=== PATIENT | male | born 1945 | race Caucasian/White ===

== ENCOUNTER 2017-08-29 18:33 | Emergency (ER) | payer MEDICARE, OTHER ==
--- NOTE | 2017-08-29 19:08 | EDM.PDOC ---
ED HPI GENERAL MEDICAL PROBLEM - General Chief Complaint: Genitourinary Problem Stated Complaint: POSSIBLE KIDNEY STONE Time Seen by Provider: 08/29/17 18:56 Source of Information: Reports: Patient, Family () History Limitations: Reports: No Limitations - History of Present Illness INITIAL COMMENTS - FREE TEXT/NARRATIVE: The patient states that he developed lower left flank pain 44-36 hours ago. Initially it was mild, then became worse yesterday. It is a constant heavy burning sensation. It is not modifiable. He states that it is the same as prior kidney stones. The pain started to radiate to the lower left quadrant of his abdomen around 14:00 to 15:00 today. The patient also notes that he was constipated yesterday, took Ex-Lax, then had a good bowel movement, which improved his symptoms. The patient and his are on vacation, traveling by car from [place]. Left Flank Pain Score (Numeric/FACES): 9 - Related Data Allergies Allergy/AdvReac Type Severity Reaction Status Date / Time Penicillins Allergy Hives Verified 08/29/17 18:57 anti-inflammatories Allergy Hives Uncoded 08/29/17 18:57 Past Medical History HEENT History: Reports: Hard of Hearing, Impaired Vision Genitourinary History: Reports: Renal Calculus Musculoskeletal History: Reports: Fracture - Past Surgical History HEENT Surgical History: Reports: Tonsillectomy Male Surgical History: Reports: Lithotripsy ([facility]) Social & Family History - Family History Family Medical History: Noncontributory ED ROS GENERAL - Review of Systems Review Of Systems: ROS reveals no pertinent complaints other than HPI. ED EXAM, RENAL/ - Physical Exam Exam: See Below Exam Limited By: No Limitations General Appearance: Alert, WD/WN, No Apparent Distress Eye Exam: Bilateral Eye: Normal Inspection Ears: Normal External Exam, Hearing Grossly Normal Nose: Normal Inspection, No Blood Throat/Mouth: Normal Inspection, Normal Lips, Normal Voice, No Airway Compromise Head: Atraumatic, Normocephalic Neck: Normal Inspection, Full Range of Motion Respiratory/Chest: No Respiratory Distress, Lungs Clear, Normal Breath Sounds, No Accessory Muscle Use Cardiovascular: Normal Peripheral Pulses, Regular Rate, Rhythm, No Edema, No Gallop, No JVD, No Murmur, No Rub GI/Abdominal: Normal Bowel Sounds, Soft, Non-Tender (even to LLQ), No Organomegaly, No Distention, No Abnormal Bruit, No Mass (Male) Exam: Deferred Rectal (Males) Exam: Deferred Back Exam: Normal Inspection, Full Range of Motion, CVA Tenderness (L) (mild). No: CVA Tenderness (R) Extremities: Normal Inspection, Normal Range of Motion, No Pedal Edema, Normal Capillary Refill Neurological: Alert, Oriented, Normal Cognition, No Motor/Sensory Deficits Psychiatric: Normal Affect Skin Exam: Warm, Dry, Intact, Normal Color, No Rash Course - Vital Signs Last Recorded V/S: Last Vital Signs Temp 36.6 C 08/29/17 18:54 Pulse 90 08/29/17 18:54 Resp 24 H 08/29/17 18:54 BP 160/79 H 08/29/17 18:54 Pulse Ox 99 08/29/17 18:54 - Orders/Labs/Meds Orders: Active Orders 24 hr Category Date Time Status UA W/MICROSCOPIC [URIN] Stat Lab 08/29/17 18:45 Ordered Labs: Laboratory Tests 08/29/17 Range/Units 18:45 Urine Color Yellow (Yellow) Urine Appearance Clear (Clear) Urine pH 5.5 (5.0-8.0) Ur Specific [place] 1.020 (1.005-1.030) Urine Protein 1+ H (Negative) Urine Glucose (UA) 2+ H (Negative) Urine Ketones 2+ H (Negative) Urine Occult Blood 2+ H (Negative) Urine Nitrite Negative (Negative) Urine Bilirubin Negative (Negative) Urine Urobilinogen 0.2 (0.2-1.0) Ur Leukocyte Esterase Negative (Negative) Urine RBC 20-30 H (0-5) /hpf Urine WBC 5-10 H (0-5) /hpf Ur Epithelial Cells Not seen (0-5) /hpf Urine Bacteria Occasional (FEW) /hpf Urine Mucus Not seen (FEW) /hpf Meds: Medications Discontinued Medications Generic Name Dose Route Start Last Admin Trade Name Freq PRN Reason Stop Dose Admin Hydromorphone HCl 0.5 mg 08/29/17 20:37 08/29/17 20:47 Dilaudid IVPUSH 08/29/17 20:38 0.5 mg ONETIME ONE Administration Sodium Chloride 1,000 mls @ 150 mls/hr 08/29/17 20:15 08/29/17 20:20 Normal Saline IV 150 mls/hr ASDIRECTED PRABHAKAR Administration Ondansetron HCl 4 mg 08/29/17 20:37 08/29/17 20:46 Zofran IVPUSH 08/29/17 20:38 4 mg ONETIME ONE Administration Tamsulosin HCl 0.4 mg 08/29/17 20:13 08/29/17 20:20 Flomax PO 08/29/17 20:14 0.4 mg ONETIME ONE Administration - Re-Assessments/Exams Free Text/Narrative Re-Assessment/Exam: 08/29/17 19:05 By history, the patient likely has a left ureterolith. I have ordered a urinalysis, and if positive for blood, I will order a CT scan of the abdomen and pelvis to evaluate for a ureterolith. In the meantime, the patient was offered pain medication, but declined, presently. 08/29/17 22:09 CT of the abdomen and pelvis without contrast is read by [facility] as: Mild left hydronephrosis secondary to 7 mm calculus in the mid left ureter. Additional bilateral nonobstructive nephrolithiasis. 08/29/17 23:11 There was a delay in discharging the patient due to managing a trauma patient. Test results discussed with the patient and his . At 7 mm, the patient will not likely pass this stone on his own, therefore I would like him to see a Urologist. As he and his are on vacation from [place], I recommended that they cancel their vacation and head home. I don't believe that the patient will be able to enjoy the remainder of his vacation with this stone, and he will not be able to drive if he is taking [place] for pain relief. For tonight's purposes, the patient will be discharged with [facility] prescriptions for [place], Zofran, and Flomax. He will be given a urine strainer. Departure - Departure Time of Disposition: 23:10 Disposition: Home, Self-Care 01 Condition: Fair Clinical Impression: Ureterolithiasis - Discharge Information Instructions: Kidney Stones, [id number] Referrals: PCP,Not In Area [Primary Care Provider] - Forms: ED Department Discharge Additional Instructions: You were seen in the emergency room for left flank pain radiating to your lower left abdomen. Workup in the ER included a urinalysis, which showed microscopic amounts of blood, followed by a CT scan of your abdomen and pelvis, which confirmed that you have a 7 mm stone in your mid left ureter. You will not likely pass this stone on your own - it is too large - therefore you will need to follow-up with a Urologist at the next available appointment. You have been prescribed [place], Zofran, and Flomax. Take 1-2 tablets of the narcotic pain reliever [place] up to every 6 hours, as needed for pain. If you take Hamburg, do not drive for 10 hours afterwards. [place] will likely cause constipation, so consider taking a stool softener. Dissolve one tablet of the anti-nausea medicine Zofran on your tongue up to every 8 hours, as needed for nausea/vomiting. Take one tablet of the anti-spasm medicine Flomax each evening, starting tomorrow evening, , 08/30/2017. Stay adequately hydrated. Strain all your urine. If you capture the stone, take it to your doctor for analysis. If any other problems, please do not hesitate to return to the ER. - My Orders Last 24 Hours: My Active Orders 08/29/17 18:45 UA W/MICROSCOPIC [URIN] Stat - Assessment/Plan Last 24 Hours: My Active Orders 08/29/17 18:45 UA W/MICROSCOPIC [URIN] Stat
[2017-08-29] MEDS ORDERED: Tamsulosin 0.4 MG Cap.ER PO ONE (20:13)
[2017-08-29] MEDS ORDERED: Sodium Chloride 0.9% 1,000 ML IV SCH (20:15)
[2017-08-29] MEDS ORDERED: HYDROmorphone 0.5 MG/0.5 ML SYRINGE IVPUSH ONE (20:37)
[2017-08-29] MEDS ORDERED: Ondansetron 4 MG/2 ML SDV IVPUSH ONE (20:37)
--- NOTE | 2017-08-30 07:42 | CT ---
CT abdomen and pelvis Technique: Multiple axial sections were obtained from above the dome of the diaphragm inferiorly through the pubic symphysis. Intravenous and oral contrast not utilized. Study has been performed as a ureteral stone protocol. Comparison: No prior abdominal imaging. Findings: 4.7 mm obstructing calculus is seen within the mid left ureter causing proximal hydronephrosis. No other abnormal ureteral calcifications are seen. Several nonobstructing calculi are seen within both kidneys measuring 5 mm or less in size. Visualized lung bases show nothing acute. Noncontrast appearance of the liver and spleen appears within normal limits. Adrenal glands show no nodule. Pancreas is within normal limits. Aorta shows atherosclerotic change without aneurysm. No retroperitoneal adenopathy or mesenteric abnormalities are seen. Appendix is not visualized with certainty. Sigmoid diverticuli without diverticulitis is noted. Diverticuli are also seen within the descending colon. Bone window settings were reviewed which show diffuse degenerative change within the spine. Impression: 1. Nonobstructing calculi within both kidneys. 2. 4.7 mm obstructing stone within the mid left ureter causing proximal hydronephrosis. 3. Other incidental findings as noted above. Diagnostic code #3 Agree with preliminary report issued by [employer] ([facility] preliminary report dictated on 08/29/17, 10:53 PM Central Time)
== END 2017-08-29 23:49 | disposition home or self-care (01) ==
LOC: JD.ED 18:33
DX: N13.2 Hydronephrosis with renal and ureteral calculous obstruction (principal); Z88.0 Allergy status to penicillin
CPT/HCPCS: 74176; 81001; 96361; 96374; 96375; 99284; A9270; J1170; J2405; J7040